=== PATIENT | female | born 1965 | race Caucasian/White ===

== ENCOUNTER → 2016-02-11 | Outpatient (CLI) | payer OTHER ==
--- NOTE | 2016-02-11 11:52 | US ---
Complete Pelvic Sonography (Transabdominal and Endovaginal) Clinical History: 50-year-old female with history of an ovarian cyst complaining of left lower quadra nt pain. ICD-10 Diagnostic Code: N83.202. Technique: Initially, a curvilinear 5 MHz transducer was used to sonographically evaluate the pelvis, using a full urinary bladder as window. To better assess the uterine architecture and the adnexal st ructures, endovaginal pelvic sonography was also performed. Cine clips are also provided at the level of the uterus and ovaries. Comparison Study: Pelvic sonography, dated May 11, 2015. Findings: Transabdominal Pelvic Sonography: The uterus is normal in size, shape, and position measuring 6.8 x 3 .2 x 5.4 cm. The endometrium is thin. The right and left adnexal structures are obscured by bowel gas . There is no free fluid. Endovaginal Pelvic Sonography: The endometrium is normal, measuring 1.5 mm. There is no focal myometr ial abnormality. The right ovary measures 2.8 x 2.1 x 1.5 cm, and the left ovary measures 2.4 x 1.3 x 1.3 cm. There has been resolution of a previously seen left ovarian cyst since May 11, 2015. Impression: Normal exam.
== END ==
LOC: FIMAGING 10:16
PROVIDERS: ATTEND Family Medicine
DX: N83.202 Unspecified ovarian cyst, left side (principal); Z87.42 Personal history of other diseases of the female genital tract

== ENCOUNTER → 2016-04-21 | Outpatient (CLI) | payer OTHER | LOC: FIMAGING 09:57 | DX: Z12.31 Encounter for screening mammogram for malignant neoplasm of breast (principal) | CPT/HCPCS: G0202 ==

== ENCOUNTER → 2017-04-24 | Outpatient (CLI) | payer OTHER | LOC: FIMAGING 08:44 | PROVIDERS: ATTEND Family Medicine | DX: Z12.31 Encounter for screening mammogram for malignant neoplasm of breast (principal) ==

== ENCOUNTER 2017-07-03 15:57 | Emergency (ER) | payer OTHER ==
--- NOTE | 2017-07-03 16:59 | EDPHY ---
H & P Stated Complaint: R wrist injury Time Seen by Provider: 07/03/17 16:29 HPI/ROS: CHIEF COMPLAINT: Right wrist injury post foosh HISTORY OF PRESENT ILLNESS: 52-year-old egini-bzix-spkjxaad female were some/ therapist stain mechanical fall she is playing basketball on an outstretched right right hand. Complaining of pain to the distal radius. Occurred earlier today. Reproducible pain with palpation range of motion/movement. No hand pain. No proximal elbow or upper extremity pain. No paresthesia. PHYSICAL EXAM (Prior to examination, patient consented to physical exam, hands were washed and my usual and customary physical exam procedures followed) 1) GENERAL: Well-developed, well-nourished, alert and oriented. Appears to be in no acute distress. 2) HEAD: Normocephalic 3) HEENT: Pupils equal, round, reactive to light bilaterally. 4) LUNGS: Breathing comfortably. 5) MUSCULOSKELETAL: Soft tissue swelling tender to palpation distal radius. Soft compartments. Normal coloration. 6) SKIN: No puncture wound or laceration. 7) VASCULAR: pulses and cap refill present are brisk 8) NEUROLOGIC: Radial, ulnar, median nerve function intact with no deficits appreciated on exam DIFFERENTIAL DIAGNOSIS: in no particular order including but not limited to fracture, sprain, compartment syndrome Procedure: Splint A sugar-tong Orthoglass splint and sling was applied by ER soil conservation technician. After application of the splint I returned and re-examined the patient. The splint was adequately immobilizing the joint and distal to the splint the patient's circulation and sensation were intact. Patient shows no signs of compartment syndrome. Was given orthopedic precautions. - Personal History LMP (Females 10-55): Post Menopausal Current Tetanus/Diphtheria Vaccine: Yes Current Tetanus Diphtheria and Acellular Pertussis (TDAP): Yes - Medical/Surgical History Hx Asthma: No Hx Chronic Respiratory Disease: No Hx Diabetes: No Hx Cardiac Disease: No Hx Renal Disease: No Hx Cirrhosis: No Hx Alcoholism: No Hx HIV/AIDS: No Hx Splenectomy or Spleen Trauma: No Other PMH: denies - Social History Smoking Status: Never smoked Constitutional: Initial Vital Signs Temperature (C) 36.7 C 07/03/17 16:17 Heart Rate 51 L 07/03/17 16:17 Respiratory Rate 16 07/03/17 16:17 Blood Pressure 154/76 H 07/03/17 16:17 O2 Sat (%) 96 07/03/17 16:17 O2 Delivery Mode Room Air Allergies/Adverse Reactions: No Known Allergies Allergy (Unverified 07/03/17 16:17) Home Medications: Medication Instructions Recorded NK [No Known Home Meds] 07/03/17 Medical Decision Making - Diagnostics Imaging Results: Imaging Impressions Wrist X-Ray 07/03/17 16:20 Impression: Impacted, comminuted intraarticular distal right radius fracture. Images reviewed myself ED Course/Re-evaluation: Patient re-evaluated with serial examinations. I stressed the importance of close follow-up with orthopedics given the intra-articular comminuted component of this injury. Discussed possible consequences of posttraumatic arthritis. Given orthopedic referral information. No indication for reduction at this time. This is a closed fracture she is neurovascularly intact with no median nerve damage on exam. Usual and customary orthopedic precautions and instructions provided. She feels comfortable being discharged. I saw this patient independently based on established practice protocols. Care of patient under supervision of secondary supervising physician Dr España . Departure - Departure Disposition: Home, Routine, Self-Care Clinical Impression: Activity, basketball Fracture of right distal radius Qualifiers: Encounter type: initial encounter Fracture type: closed Fracture morphology: other intra-articular Qualified Code(s): S52.571A - Other intraarticular fracture of lower end of right radius, initial encounter for closed fracture Condition: Good Instructions: Wrist Fracture in Adults (ED) Additional Instructions: Return to the ER immediately if you experience discoloration, have worsening pain, numbness, tingling, or any other symptoms that concern you. If you received x-rays in the emergency department today, be advised, that ligamentous , tendon, muscular, and other non-bony injury cannot be fully ruled out. Try to keep your affected extremity elevated above the level of your chest, and keep cold packs on the affected area, for the next 48 hours. Adult Pain & Fever Control: We recommend Acetaminophen (Tylenol) and Ibuprofen (Motrin,Advil) for pain and fever control. When fever is high or pain severe, both drugs can be used at the same time, but at different intervals. Please note the time differences. Your dose is: Acetaminophen 650mg every 4 to 6 hours Ibuprofen 600mg every 6 hours with food OR Note: do not take Acetaminophen with Hydrocodone (Vicodin, Lortab) or Oycodone (Percocet). These medications also contain Acetaminophen. No more than 3000mg of Acetaminophen should be taken in 24 hours (for an adult). Referrals: Babar Mehta MD [Medical Doctor] - 2-3 days, call for appt. (Dr. Babar Mehta is orthopedic surgeon)
[2017-07-03 17:33] VITALS: BP 147/89
== END 2017-07-03 17:33 | disposition home or self-care (01) ==
DX: S52.571A Other intraarticular fracture of lower end of right radius, initial encounter for closed fracture (principal); W18.39XA Other fall on same level, initial encounter; Y99.8 Other external cause status; Y93.67 Activity, basketball
CPT/HCPCS: A4565